=== PATIENT | male | born 1945 | race Caucasian/White ===

== ENCOUNTER → 2017-02-28 | Outpatient (CLI) | payer OTHER ==
[~2017-02-28] MED LIST: AMBIEN 10 MG TA10 MG PO; ASPIR 8181 MG PO; ASPIRIN EC325 M1 PO; ATIVAN0.5 MG PO; BACTROBAN15 GM TOP; COLACE 100 MG100 MG PO; COZAAR 25 MG TA25 MG PO; ENOXAPARIN40 MG/0.1 INJECTION; FINASTERIDE5 MG PO; HYDROCODON-ACE1 EAC4 PO; IRON256 MG PO; MEDROLDOSEPACK PO; METHADONE HCL 110 M1 PO; MOBIC15 MG PO; NEURONTIN 300300 M1 PO; PERCOCET 5-3251 EACH PO; REQUIP 0.25 M0.25 MG PO; SIMVASTATIN40 MG PO; TRAMADOL 50 MG50 MG PO; XARELTO10 MG PO
--- NOTE | 2017-03-08 08:41 | PAINCON ---
[address] [address] PAIN MANAGEMENT CONSULTATION Name: GABRIELUBALDO K [facility] [id number] Admission: 02/28/17 Attend Phys: Emelina Haywood MD Discharge: Date of : 49 Report #: [id number] THIS REPORT FOR: //name// CC: Darshan Haywood DATE OF SERVICE: 02/28/2017 FOLLOWUP COMPLAINT: Pain improved by 80%-90% after the last injection, but has started to gradually return. I would like to get another injection. FOLLOWUP HISTORY: The patient is a 71-year-old gentleman who has been seen in the pain clinic because of lumbar radiculopathy. He has undergone epidural steroid injections and gleaned benefits from these. As you recall, he has had instrumentation with rods and pedicle screws in his low back area. He has noted some worsening of his pain and discomfort. He is planning on going to [facility] in the next few days. At this juncture, because this pain has started to recur with numbness, weakness, and tingling down in the lower portion of his legs, left and right, he would like to proceed with another epidural steroid injection. He has had no complication from their use. Overall, he feels that things have been going quite well. The weather has changed and the outside temperature is 1 degree at this juncture. He has noted some increased pain and discomfort as a result of that. He continues to use oxycodone episodically. He finds that Mobic 15 mg, which is helpful and Requip helpful with the knee/leg problems. PHYSICAL EXAMINATION: VITAL SIGNS: Blood pressure 140/90, heart rate 89, respiratory rate 16, room air saturation is 96%, temperature 98.3, height 6 feet 3 inches, weight 262 pounds, BMI is 32. He has not fallen since we saw him last. HEENT: Unremarkable. NECK: Without adenopathy. HEART: Regular rate and rhythm. ABDOMEN: Nontender, somewhat protuberant. MUSCULOSKELETAL: Muscle strength in the upper extremities 5/5 with normal sensory. Musculature in the lower extremities 5/5 with some decreased sensation in the L5-S1 distribution on the left and right. The patient is walking with a slight limp MEDICATION ALLERGIES: MORPHINE. MEDICATIONS: Aspirin 81 mg daily, finasteride 5 mg for prostate daily, Mobic 15 mg oxycodone. The patient is out at this juncture, took one p.o. p.r.n. for pain, was given a total of 20 at the last visit, Requip 0.25 mg t.i.d., Zocor [address] [place] [address] PAIN MANAGEMENT CONSULTATION Name: UBALDO RIOS Room: [facility]#: [id number] Admission: 02/28/17 Attend Phys: Emelina Haywood MD Discharge: Date of : 49 Report #: [id number] IMPRESSION: 1. Low back fusion with instrumentation involving rods and pedicle screws in the L4-L5 distribution. 2. Restless leg syndrome. 3. Hypercholesterolemia. 4. Prostate history. RECOMMENDATIONS: We discussed treatment options with the patient. Risks and benefits of another epidural steroid injection were discussed. Possible complications of the procedure were again reviewed. We will consult the patient's insurance carrier. After precertification has been established patient will undergo an epidural steroid injection to help decrease the pain, discomfort, weakness, numbness and tingling, which he is experiencing in his lower extremities, which improved by 80%-90% after the previous treatment with epidural steroid injections. We would like to thank you for letting us participate in his care. We hope he continues to improve. A script for a Medrol Dosepak was written today as well as 60 tablets oxycodone and a renewal of his Mobic prescription. <ELECTRONICALLY SIGNED> By: Emelina Haywood MD 03/08/17 0841 [id number] 1849N. Danyel Haywood MD /[place]
== END ==
LOC: M.PC 00:02
DX: M54.16 Radiculopathy, lumbar region (principal); G25.81 Restless legs syndrome; M43.26 Fusion of spine, lumbar region; E78.00 Pure hypercholesterolemia, unspecified

== ENCOUNTER → 2017-03-02 | Outpatient (CLI) | payer OTHER ==
--- NOTE | 2017-03-08 08:48 | PAINCON ---
[address] [address] PAIN MANAGEMENT CONSULTATION Name: GABRIELUBALDO Okeefe [facility] [id number] Admission: 03/02/17 Attend Phys: Emelina Haywood MD Discharge: Date of : 47 Report #: [id number] THIS REPORT FOR: //name// CC: Darshan Haywood DATE OF SERVICE: 03/02/2017 FOLLOWUP COMPLAINT: Insurance company has precerted him for another epidural steroid injection. FOLLOWUP HISTORY: The patient is a 71-year-old gentleman who has been seen in the pain clinic because of lumbar radiculopathy. He gleaned greater than 90% improvement after epidural steroid injections. He has noted over the past few weeks, some worsening of his pain and discomfort. It has been radiating down into his low back and the posterior portion of his legs. He is planning on going to [facility] with his family. As you recall, he has had surgery on his back with pedicle screws and rodding. He went with his to the shopping center yesterday. States that he was only able to walk for a short brief period of time before onset of pain and discomfort caused him to stop. He then set and waited for his to return. He notes a stabbing sensation down his buttocks with radiation down into his leg involving his feet. He rates his pain as a 5/10 today. He has had no problem with his bowel or bladder function. He finds that the oxycodone can be helpful. He uses this medication episodically. PHYSICAL EXAMINATION: Blood pressure 147/90, heart rate 96, respiratory rate 16, room air saturation 95%, temperature 98.3, height 6 feet 3 inches, weight 261 pounds, BMI is 33. HEENT: Unremarkable. NECK: No adenopathy. HEART: Regular rate. ABDOMEN: Nontender, somewhat protuberant. MUSCULOSKELETAL: The patient notes normal strength 5/5 in the upper musculature, but notes some pain and discomfort in the lower portion of his back. He rates pain as 5/5. Has some L5-S1 straight leg positivity in the left leg today. He is walking with a limp. He walks when a somewhat forward leaning position. ALLERGIES: MORPHINE. MEDICATIONS: The patient continues with aspirin 81 mg daily, finasteride 5 mg for prostate, Mobic 15 mg, oxycodone 5 mg p.r.n., Requip 0.25 mg t.i.d., restless leg, Zocor 40 mg daily. IMPRESSION: [facility] [address] [place] [address] PAIN MANAGEMENT CONSULTATION Name: GABRIELUBALDO K Room: [facility]#: [id number] Admission: 03/02/17 Attend Phys: Emelina Haywood MD Discharge: Date of : 47 Report #: [id number] 1. Low back pain with fusion involving rods and pedicle screws at the L4-L5 distribution. 2. Restless legs syndrome. 3. Hypercholesterolemia. 4. Prostate History. RECOMMENDATIONS: We discussed treatment options with the patient. He has returned today for an injection. Again, the possible complication of the procedure, which could include but are not limited to infection, increased muscle soreness, headache, bleeding, nerve damage. The patient elects to proceed. PROCEDURE NOTE: The patient was placed in the prone position. Fluoroscopy was used to identify the appropriate L5-S1 area. Anterior and posterior imaging was used. After appropriate placement and infiltration of 0.25% bupivacaine. A total of 80 mg Depo-Medrol, 40 mg triamcinolone and 2 mL of 0.25% bupivacaine was injected. The patient tolerated the procedure well. There were no complications. There was no bleeding. A Band-Aid was then placed over the site. He was taken to the recovery room where he remained for an appropriate amount of time. He will take a Medrol Dosepak, which has been given to him. While he is on vacation if he notes his pain should worsen, he will then take that medication. He will call us if he has any problems. We would like to thank you for letting us participate in his care. We hope he continues to improve. He will continue with [facility] as well. <ELECTRONICALLY SIGNED> By: Emelina Haywood MD 03/08/17 0848 [id number] 1718N. Danyel Haywood MD /[place]
== END | disposition home or self-care (01) ==
LOC: M.PC 02:18
DX: M54.16 Radiculopathy, lumbar region (principal); G25.81 Restless legs syndrome; E78.00 Pure hypercholesterolemia, unspecified; Z88.6 Allergy status to analgesic agent; Z79.82 Long term (current) use of aspirin; Z85.46 Personal history of malignant neoplasm of prostate; Z98.890 Other specified postprocedural states

== ENCOUNTER → 2017-05-04 | Outpatient (CLI) | payer OTHER ==
--- NOTE | 2017-05-17 14:40 | PAINCON ---
[address] [address] PAIN MANAGEMENT CONSULTATION Name: GABRIELUBALDO Okeefe Room: [facility] Zara#: [id number] Admission: 05/04/17 Attend Phys: Emelina Haywood MD Discharge: Date of : 47 Report #: [id number] THIS REPORT FOR: //name// CC: Darshan Haywood DATE OF SERVICE: 05/04/2017 FOLLOWUP COMPLAINT: Return of back and leg pain. FOLLOWUP HISTORY: The patient is a 71-year-old gentleman who has been followed in the pain clinic. He has had back surgery with rods and pedicle screws placed. He has undergone epidural steroid injections and gleaned greater than 50% improvement after the injections. He has noted some recurrence of his pain. He experienced greater than 80% improvement after the last injection. He is making an appointment at to see a neurosurgeon. At this juncture, he feels that his pain is beginning to return and he would like to undergo another injection before it becomes quite problematic. He also has a number of family obligations which he needs to attend in the next few weeks to months. He feels that this would enable him to fulfill those obligations with less pain and discomfort. He feels that Meloxicam still is helpful and that oxycodone 5 mg tablets continue to be efficacious. He rates his pain as a 7/10 at this juncture. He does take Xarelto and would like to stop this medication at an appropriate time to undergo his injection. ALLERGIES: MORPHINE. MEDICATIONS: Reviewed are aspirin 81 mg daily, finasteride 5 mg for prostate, meloxicam 15 mg daily, oxycodone 5/325 one mg p.o. q. 6 hours p.r.n., Requip 0.25 mg t.i.d., Zocor 40 mg daily, Xarelto, losartan. PAIN CILNIC ASSESSMENT: 1. History of osteoarthritis. The patient has had his right knee replaced and left knee replaced as well as a left hip replacement and fusion of the L4-L5 portion of his low back. 2. Pain intensity 6-7, when walking. 3. Fall risk, the patient has not fallen in the last 3 months. 4. The patient is on a blood thinner, Xarelto. 5. History of hypertension. The patient is on antihypertensive medication. 6. Opioid therapy. The patient is using oxycodone 5/325 and gets them only from the pain clinic. 7. Risk assessment. 8. Functional assessment tool score is 36/70 in regards to general activity, mood, walking, normal work, relationship with others, sleep, and [place] [address] PAIN MANAGEMENT CONSULTATION Name: UBALDO RIOS Room: [facility]#: [id number] Admission: 05/04/17 Attend Phys: Emelina Haywood MD Discharge: Date of : 49 Report #: [id number] 9. Recreational drugs. The patient denies use of recreational drugs. 10. Tobacco: The patient denies tobacco use. 11. Alcoholic beverages: The patient drinks about 2-4 alcoholic beverages per week. PHYSICAL EXAMINATION: GENERAL: The patient is a well-developed white male who appears his stated age. Appears oriented and alert x 3. Affect is appropriate. VITAL SIGNS: Height 6 feet 3 inches, weight 265 pounds, BMI is 33. Blood pressure 157/99, heart rate 95, respiratory rate 16, room air saturation 95%, temperature 98.3. HEENT: Normocephalic, atraumatic with extraocular eye muscles intact. Hearing within normal limits. Buccal membranes moist. NECK: Without adenopathy or bruits. LUNGS: Clear to auscultation. HEART: Regular rate. ABDOMEN: Nontender, somewhat protuberant. MUSCULOSKELETAL: Strength is noted to be 5/5 in the upper extremities. He has some pain in his lower back. Rates his muscle strength in the lower extremities as above 5/5. He has some positive sensation in the straight leg raises on the left. He does walk with an antalgic gait with a slight limp. It is somewhat forward leaning in his ambulation. IMPRESSION: 1. History of low back fusion with pedicle screws and rods in the L4-L5 distribution since January 2009. 2. Restless leg syndrome. 3. Hypercholesterolemia. 4. Prostate history. RECOMMENDATIONS: We discussed treatment options with the patient. At this juncture, he would feel that another epidural steroid injection would be beneficial. He has had them before. Notes that the pain improves significantly to 80%. He is considering going on vacation with family members. At this juncture, he feels that this pain is beginning to increase. He feels that another epidural steroid injection would be beneficial. He has had no complication from the procedures in the past. He is contemplating an appointment with a neurosurgeon at [facility]. He feels at this juncture, another epidural steroid injection would be beneficial and would like to have it performed. He has returned for evaluation and we will notify his insurance company. After precertification has been provided, we will then proceed with an epidural steroid injection in the L5-S1 distribution, which has been most effective and helpful in the past. [place] [address] PAIN MANAGEMENT CONSULTATION Name: UBALDO RIOS Room: [facility] CHELLE Zuñiga#: [id number] Admission: 05/04/17 Attend Phys: Emelina Haywood MD Discharge: Date of : 49 Report #: [id number] Report amended for demographic error. <ELECTRONICALLY SIGNED> By: Emelina Haywood MD 05/17/17 1440 1555 1838N. Danyel Haywood MD /[place]
== END ==
LOC: M.PC 01:35
DX: E78.00 Pure hypercholesterolemia, unspecified (principal); M19.90 Unspecified osteoarthritis, unspecified site; I10 Essential (primary) hypertension; Z79.891 Long term (current) use of opiate analgesic

== ENCOUNTER → 2017-05-11 | Outpatient (CLI) | payer OTHER ==
--- NOTE | 2017-05-17 14:40 | PAINCON ---
[facility] [address] [place] [address] PAIN MANAGEMENT CONSULTATION Name: UBALDO RIOS [facility] [id number] Admission: 05/11/17 Attend Phys: Emelina Haywood MD Discharge: Date of : 47 Report #: [id number] THIS REPORT FOR: //name// CC: Darshan Haywood DATE OF SERVICE: 05/11/2017 FOLLOWUP COMPLAINT: "Pain has restarted radiating down into my legs." FOLLOWUP HISTORY: The patient is a 71-year-old gentleman who has been seen in the pain clinic because of chronic back pain. As you recall, he has had back surgery in the past. He is noticing a worsening of his pain and discomfort over the last few months. At this juncture, he rates his pain as 5/10. He was having pain quite severe. He has scheduled an appointment with a neurosurgeon at [facility]. He is contemplating going to [facility] and a number of places with his family in the near future. He would like to undergo an epidural steroid injection given that they have been quite helpful in the past. He has not taken Xarelto. He has returned to the pain clinic with the thoughts of undergoing an epidural steroid injection. At the last visit, gabapentin 300 mg p.o. t.i.d. was started. He noticed that that medication has been helpful. He is having less of the shooting types of pain. He was able to do some work in his yard as a result of the new medication. He still is having pain and discomfort and would like to proceed with an injection. He finds that the meloxicam 15 mg p.o. every day is helpful. It is not having any problems with his GI tract. He feels that the oxycodone 5/325, which he takes 1-2 tablets at bedtime is beneficial. Overall, he rates his pain as 5/10 today. ALLERGIES: MORPHINE. MEDICATIONS: Review of his current medications include aspirin 81 mg 1 p.o. daily, finasteride 5 mg for prostate, meloxicam 15 mg p.o. daily, oxycodone 5/325 one p.o. q. 6 hours p.r.n. pain, Requip 0.25 mg t.i.d., Zocor 40 mg daily, Xarelto daily, losartan, and gabapentin 300 mg 1 p.o. t.i.d. PAIN CLINIC ASSESSMENT: 1. History of osteoarthritis: The patient has had his right knee replaced and left knee replaced as well as a left hip replacement and fusion of the L4-L5 portion of his lower back. 2. Pain intensity: The patient rates his pain as a 5/10. 3. Fall risk: The patient has not fallen in the last 3 months. 4. The patient is on a blood thinner, Xarelto. He has not taken it in preparation for an epidural steroid injection today. 5. History of hypertension: The patient is hypertensive and [place] [id number] PAIN MANAGEMENT CONSULTATION Name: UBALDO RIOS [facility] [id number] Admission: 05/11/17 Attend Phys: Emelina Haywood MD Discharge: Date of : 47 Report #: [id number] 6. Opioid therapy: The patient is using oxycodone 5/325 one p.o. q. 6 hours p.r.n. pain. 7. Risk management. 8. Functional assessment tool score is 36/70 in regards to general activity, mood, walking, work, relationships with others, sleep, and enjoyment of life. 9. Recreational drugs: The patient denies use of recreational drugs. 10. Tobacco: The patient denies use of tobacco. 11. Alcoholic beverages: The patient drinks about 2-4 alcoholic beverages per week. PHYSICAL EXAMINATION: GENERAL: The patient is a well-developed white male who appears his stated age. He is alert and oriented x 3. His affect is appropriate. VITAL SIGNS: Height 6 feet 3 inches, weight 265 pounds, BMI is 33. Blood pressure 130/79, heart rate 92, respiratory rate 16, room air saturation 96%, and temperature 97.8. HEENT: Normocephalic, atraumatic with extraocular eye muscles intact. Hearing within normal limits. Buccal membranes moist. NECK: Without adenopathy or bruits. LUNGS: Clear to auscultation. HEART: Regular rate. ABDOMEN: Nontender, somewhat protuberant. MUSCULOSKELETAL: Strength is noted today in the lower extremities and the upper extremities to be 5/5. Has some pain in his low back with pain radiating down to the legs. Rates his muscle strength in the lower extremities at 5/5. The patient does walk with a slightly antalgic gait with some slight forward leaning. He has a positive straight leg raise on the left. He has a slight limp while walking. ASSESSMENT: 1. History of low back fusion with pedicle screws and rods in the L4-L5 distribution since January 2009. 2. Restless leg syndrome. 3. Hypercholesterolemia. 4. Prostate history. RECOMMENDATIONS: We discussed treatment options with the patient. The risks and benefits of an epidural steroid injection were again reviewed. Possible complication of the procedure were discussed. They could include an improvement, no improvement, nerve damage, infection, worsening of pain and the patient elects to proceed. The patient is having pain and discomfort in the L5-S1 distribution. We will proceed with a midline injection at this level. PROCEDURE NOTE: The patient was assisted in getting on the table. His back was sterilely prepped while he was in the prone position. Fluoroscopy was used to identify the target zone using the anterior-posterior [place] [id number] PAIN MANAGEMENT CONSULTATION Name: UBALDO RIOS Room: [facility]#: [id number] Admission: 05/11/17 Attend Phys: Emelina Haywood MD Discharge: Date of : 49 Report #: [id number] lateral. This area had been sterilely prepped with Betadine and infiltrated with 0.25% bupivacaine. Total of 80 mg Depo-Medrol, 40 mg triamcinolone, and 2 mL of 0.25% bupivacaine was injected. The patient tolerated the procedure well. There was no bleeding. A Band-Aid was then placed. The patient was then escorted to the Recovery Room where he remained in the pain clinic for an appropriate amount of time. He will call us if he has any problems or concerns. We would like to thank you for letting us participate in his care. We hope he continues to improve. <ELECTRONICALLY SIGNED> By: Emelina Haywood MD 05/17/17 1440 2201 0436N. Danyel Haywood MD /[place]
== END | disposition home or self-care (01) ==
LOC: M.PC 01:36
DX: M54.16 Radiculopathy, lumbar region (principal); G89.29 Other chronic pain; I10 Essential (primary) hypertension; E78.00 Pure hypercholesterolemia, unspecified; G25.81 Restless legs syndrome; Z79.01 Long term (current) use of anticoagulants; Z98.890 Other specified postprocedural states; Z79.899 Other long term (current) drug therapy; Z96.653 Presence of artificial knee joint, bilateral; Z96.642 Presence of left artificial hip joint; Z79.891 Long term (current) use of opiate analgesic; Z88.8 Allergy status to other drugs, medicaments and biological substances

== ENCOUNTER → 2017-07-04 | Outpatient (CLI) | payer OTHER ==
--- NOTE | 2017-07-11 10:23 | PAINCON ---
[address] [address] PAIN MANAGEMENT CONSULTATION Name: GABRIELUBALDO Okeefe [id number] Admission: 07/04/17 Attend Phys: Emelina Haywood MD Discharge: Date of : 49 Report #: [id number] THIS REPORT FOR: //name// CC: Darshan Haywood DATE OF SERVICE: 07/04/2017 FOLLOWUP COMPLAINT: Pain was 70% improved after last injection and I would like to proceed with another injection. FOLLOWUP HISTORY: The patient is a 72-year-old gentleman who has been seen in the pain clinic because of lumbar radiculopathy. He was seen in April. He underwent an epidural steroid injection. Noted an improvement in his pain of 70%. He has had pain, which is radiating down the posterior portion of his left leg in the back and down into his calf. As you recall, he has had surgery in the past. He does have rods and pedicle screws in place. He is scheduled on 07/31/2017 to undergo some low back surgery. Notes that he is having problem in the L3 and L4 areas. He continues to stay active. He states that he is cleaning up his backyard in preparation for his daughter's graduation in a few days. He does take Xarelto. He stopped taking it a couple of days ago. He would like to undergo another epidural steroid injection. He finds that the gabapentin is helpful. Periodic use of oxycodone 5/325 mg tablets can be helpful. He also continues to use meloxicam. He is not having any GI complaints at this juncture. He did not have any problems with bowel or bladder function with his current medical regimen. He rates his pain as a 5-6/10. ALLERGIES: MORPHINE. CURRENT MEDICATIONS: Aspirin 81 mg daily, finasteride 5 mg for prostate, meloxicam 15 mg daily, oxycodone 5/325 one p.o. q. 6 hours p.r.n. pain, Requip 0.25 mg t.i.d., Zocor 40 mg, Xarelto, losartan, and gabapentin 300 mg t.i.d. PAIN CLINIC ASSESSMENT: 1. History of osteoarthritis. The patient has right knee replacement as well as left knee replacement. He has had fusion in the L4-L5 area with rods and pedicle screws. 2. Pain intensity 5-6/10. 3. Fall risk. The patient has fallen, but tripped over some tree limbs when he was trimming. 4. Blood thinner. The patient is on Xarelto. 5. History of hypertension. The patient is hypertensive and is on an antihypertensive regimen. 6. Opioid therapy. The patient uses oxycodone 5/325 pills. He states that a few pills last [place] [address] PAIN MANAGEMENT CONSULTATION Name: UBALDO RIOS [facility] [id number] Admission: 07/04/17 Attend Phys: Emelina Haywood MD Discharge: Date of : 49 Report #: [id number] 7. Risks management. 8. Functional assessment tool. 9. Recreational drugs: The patient denies use of recreational drugs. 10. Tobacco: The patient denies use of tobacco. 11. Alcoholic beverages. The patient drinks occasional beer. PHYSICAL EXAMINATION: GENERAL: The patient is a well-developed white male. He appears his stated age. He is alert and oriented x 3. His affect is appropriate. His speech is fluent. VITAL SIGNS: Blood pressure 136/75, heart rate 83, respiratory rate 16, room air saturation 97%. Height 6 feet 3 inches, weight 256 pounds, BMI is 31. HEENT: Normocephalic, atraumatic. Extraocular eye muscles intact. Sclerae nonicteric. Hearing is within normal limits. Mucous membranes are moist. NECK: Without adenopathy or bruits. Good range of motion. LUNGS: Clear to auscultation without rhonchi or rales. HEART: Regular rate. ABDOMEN: Nontender, somewhat protuberant MUSCULATURE: Strength is noted to be 5/5 for the major muscle groups in the upper extremity, muscle strength 5/5 for the major muscle groups in lower extremity. The patient has pain and discomfort which is radiating down into the low back area on the right, low back area and involving the left leg. The patient walks with a slightly antalgic gait. He has a slight forward lean walking. Positive straight leg raise on the left. ASSESSMENT: 1. History of low back fusion with pedicle screws and rods in the L4-L5 distribution 2. Restless leg syndrome. 3. Hypercholesterolemia. 4. Prostate history. RECOMMENDATIONS: We discussed treatment options with the patient. Risks and benefits of another epidural steroid injection were discussed. The patient gleaned greater than 75% improvement after the last injection. He continues to be quite active. He has noted some worsening of his pain and has returned to the pain clinic with a desire to undergo an epidural steroid injection. He is still taking the Xarelto. We will have him stop his Xarelto. He will return in a couple of days to the pain clinic after which he will undergo an epidural steroid injection. Risks and benefits of the procedure were again reviewed. Possible complications were discussed. The patient would like to proceed with an injection and would like to have his medications renewed. A script for gabapentin 300 mg 1 p.o. t.i.d. has been dispensed and oxycodone 5/325 one p.o. b.i.d. have been written as well. We would like to thank you for letting us participate in his care[place] [address] PAIN MANAGEMENT CONSULTATION Name: UBALDO RIOS [facility]: [facility]#: [id number] Admission: 07/04/17 Attend Phys: Emelina Haywood MD Discharge: Date of : 49 Report #: [id number] continues to improve. He will return for an epidural steroid injection within a short period of time. <ELECTRONICALLY SIGNED> By: Emelina Haywood MD 07/11/17 1023 1225 [id number] Haywood MD /nt
== END ==
LOC: M.PC 03:57
DX: M54.16 Radiculopathy, lumbar region (principal); G25.81 Restless legs syndrome; E78.00 Pure hypercholesterolemia, unspecified; N40.0 Benign prostatic hyperplasia without lower urinary tract symptoms; Z88.5 Allergy status to narcotic agent

== ENCOUNTER → 2017-07-06 | Outpatient (CLI) | payer OTHER ==
--- NOTE | 2017-07-11 10:23 | PAINCON ---
[address] [address] PAIN MANAGEMENT CONSULTATION Name: GABRIELUBALDO Okeefe [facility]limp[facility] [id number] Admission: 07/06/17 Attend Phys: Emelina Haywood MD Discharge: Date of : 49 Report #: [id number] THIS REPORT FOR: //name// CC: Emelina Garcia MD DATE OF SERVICE: 07/06/2017 CHIEF COMPLAINT: Here for an epidural injection. They have been helpful in the past. FOLLOWUP HISTORY: The patient is a 72-year-old gentleman, who has been seen and followed in the pain clinic because of chronic pain involving his low back. As you recall, he has undergone surgery in the lower back area with fusion. He has placement of rods as well as pedicle screws in place. He noticed greater than 70% improvement after epidural steroid injections in the past. He is now preparing for his granddaughter's graduation. He has been working pretty hard in his backyard. He has been moving bushes. At this juncture, he has noted some worsening of pain and discomfort with pain radiating down into his legs bilaterally. He continues to stay active. Yesterday he played golf. He has not taken his Xarelto for a number of days. He rates his pain as "pretty good today." He still feels that an epidural steroid injection is warranted because he does still have some back pain and discomfort. ALLERGIES: MORPHINE. CURRENT MEDICATIONS: Aspirin 81 mg daily, finasteride 5 mg for prostate, Meloxicam 15 mg daily, oxycodone 5/325 one p.o. q. 6 hours p.r.n. pain, Requip 0.25 mg t.i.d., Zocor 40 mg, Xarelto, losartan, gabapentin 300 mg t.i.d. PAIN CLINIC ASSESSMENT: 1. History of osteoarthritis. The patient has had replacement of his right knee as well as left knee replacement. His fusion of his back at L4-L5 area with rods and pedicle screws. 2. Pain intensity was 5-10 at the previous visit. 3. Fall risk. The patient has not fallen. The patient has tripped over some tree limbs, which he was trimming. 4. Blood thinner. The patient is off his Xarelto for the epidural steroid injection. 5. History of hypertension. The patient is on an antihypertensive regimen. 6. Opioid therapy. The patient is using oxycodone 5/325 p.r.n. for pain assistance. 7. Risk assessment tool. 8. Functional assessment tool. 9. Recreational drug use. The patient denies [place] [address] PAIN MANAGEMENT CONSULTATION Name: UBALDO RIOS Room: [facility]#: [id number] Admission: 07/06/17 Attend Phys: Emelina Haywood MD Discharge: Date of : 49 Report #: [id number] 10. Tobacco: The patient denies use of tobacco. 11. Alcoholic beverages. The patient drinks an occasional beer. Does not drink on a regular basis. PHYSICAL EXAMINATION: GENERAL: The patient is a well-developed male. He appears his stated age. He is alert and oriented x 3. His affect is appropriate. Speech is fluent. VITAL SIGNS: As listed above. HEENT: Normocephalic, atraumatic. Extraocular eye muscles intact. Sclerae nonicteric. The patient wears glasses. Hearing is within normal limits. Mucous membranes are moist. NECK: Without adenopathy or bruits. Good range of motion. LUNGS: Clear to auscultation without rhonchi or rales. HEART: Regular rate. S1, S2. ABDOMEN: Nontender, somewhat protuberant. MUSCULOSKELETAL: Muscle strength is judged to be 5/5 for the major muscle groups in the upper extremity with symmetry and without neurologic deficit. The patient has pain and discomfort in the lower portion of his back with pain radiating down into the L5-S1 distribution on his legs bilaterally. The patient has a well-healed scar in the midline area in the lumbar L4-L5 areas, status post instrumentation. ASSESSMENT: 1. History of low back pain with pedicle screws and rods at the L4-L5 area. 2. Restless leg syndrome. 3. Hypercholesterolemia. 4. Prostate history. RECOMMENDATIONS: We discussed treatment options with the patient. He has held his Xarelto. He has returned to the pain clinic for a lumbar epidural steroid injection. He has gleaned 70-80% improvement in the past. He is about to host his granddaughter's graduation. He has been cleaning his backyard in preparation for this. He has moved some foliage. He has noted some worsening of his pain and discomfort. He would like to proceed with another epidural steroid injection. Pain radiates down in to the L5-S1 distribution when present. PROCEDURE NOTE: We discussed treatment options with the patient. Risks and benefits of an epidural steroid injection were again reviewed. They include infection, increased muscle soreness, headache, bleeding, worsening of pain, nerve damage and the patient elects to proceed. PROCEDURE NOTE: The patient was placed in the prone position. Fluoroscopy was used to identify the L5-S1 interspace. Fluoroscopy using an anterior, posterior as well as a lateral approach was used to guide our needle placement. After the midline L5-S1 area was identified. Betadine had [place] [address] PAIN MANAGEMENT CONSULTATION Name: UBALDO RIOS Room: [facility]#: [id number] Admission: 07/06/17 Attend Phys: Emelina Haywood MD Discharge: Date of : 49 Report #: [id number] This area was then infiltrated with 0.25% bupivacaine. A 17-gauge Tuohy with loss of resistance technique was used to gain access to the epidural space. There was no CSF, heme or paresthesia. A total of 80 mg Depo-Medrol, 40 mg triamcinolone and 2 mL of 0.25% bupivacaine was injected. The patient tolerated the procedure well. There were no complications. He will follow up in the future as needed. The patient states that he is going to go to ____ and have some additional surgery in the near future. <ELECTRONICALLY SIGNED> By: Emelina Haywood MD 07/11/17 1023 1417 1951N. Danyel Haywood MD /nt
== END | disposition home or self-care (01) ==
LOC: M.PC 01:38
DX: M54.16 Radiculopathy, lumbar region (principal); G89.29 Other chronic pain; I10 Essential (primary) hypertension; E78.00 Pure hypercholesterolemia, unspecified; G25.81 Restless legs syndrome; Z87.438 Personal history of other diseases of male genital organs; Z79.891 Long term (current) use of opiate analgesic; Z79.899 Other long term (current) drug therapy; Z96.653 Presence of artificial knee joint, bilateral; Z88.8 Allergy status to other drugs, medicaments and biological substances; Z79.82 Long term (current) use of aspirin; Z98.890 Other specified postprocedural states

== ENCOUNTER 2017-07-11 10:17 | Emergency (ER) | payer OTHER ==
[~2017-07-11] VITALS: Ht 190.5 cm; Wt 115.7 kg
[~2017-07-11 10:17] MED LIST changes: -BACTROBAN15 GM TOP; -COZAAR 25 MG TA25 MG PO; -SIMVASTATIN40 MG PO
[2017-07-11 11:50] VITALS: BP 125/96
== END 2017-07-11 13:39 | disposition home or self-care (01) ==
LOC: M.ERS 10:17
DX: M54.5 Low back pain (principal); Z88.6 Allergy status to analgesic agent

== ENCOUNTER 2017-07-25 16:47 | Emergency (ER) | payer OTHER ==
[~2017-07-25] VITALS: Ht 190.5 cm; Wt 116.1 kg
[2017-07-25 17:46] LABS: HEMATOCRIT 44.9 % (42.0-52.0); HEMOGLOBIN 14.5 gm/dL (14.0-18.0); MCH 28.3 pg (26.0-34.0); MCHC 32.4 g/dL (28.0-37.0); MCV 87.5 fL (80.0-100.0); MPV 7.7 fl. (7.2-11.1); NUCLEATED RBCS 0 /100WBC; PLATELET COUNT* 368 thou/uL (150-400); RBC 5.13 mil/uL (4.50-6.00); RDW-CV 15.1 % (10.5-14.5); WBC 14.3 thou/uL (4.0-11.0)
[2017-07-25 17:52] LABS: APTT 44.1 Seconds (25.0-31.3); CALCIUM 9.2 mg/dL (8.5-10.1); CREATININE 1.4 mg/dL (0.6-1.3); INR 1.3; POTASSIUM 5.2 mmol/L (3.5-5.1); PROTIME 12.2 Seconds (9.20-11.50)
[2017-07-25 17:57] LABS: ALBUMIN 2.4 g/dL (3.4-5.0); TOTAL BILIRUBIN 0.4 mg/dL (<0.1-1.0); TOTAL PROTEIN 7.6 g/dL (6.4-8.2)
[2017-07-25 18:23] LABS: ABSOLUTE LYMPHOCYTES 0.3 thou/uL (0.8-5.3); ABSOLUTE MONOCYTES 0.3 thou/uL (0.0-1.2); ABSOLUTE NEUTROPHILS 13.7 thou/uL (1.6-8.1)
[2017-07-25 18:24] LABS: LARGE PLATELETS OCCASIONAL; PLATELET ESTIMATE ADEQUATE
[2017-07-25 19:37] LABS: URINE BILIRUBIN NEGATIVE (Negative); URINE BLOOD NEGATIVE (Negative); URINE CLARITY CLEAR; URINE COLOR YELLOW; URINE GLUCOSE-RANDOM NEGATIVE (Negative); URINE KETONES NEGATIVE (Negative); URINE LEUKOCYTES-REFLEX NEGATIVE (Negative); URINE NITRITE-REFLEX NEGATIVE (Negative); URINE PROTEIN NEGATIVE (Negative); URINE SPECIFIC GRAVITY 1.025 (1.005-1.030)
[2017-07-25 21:25] VITALS: BP 129/72
== END 2017-07-25 21:27 | disposition short-term general hospital (02) ==
LOC: M.ERS 16:47
PROVIDERS: Nurse Practitioner Family
DX: G89.29 Other chronic pain (principal); M54.5 Low back pain; L03.116 Cellulitis of left lower limb; I77.6 Arteritis, unspecified; N40.0 Benign prostatic hyperplasia without lower urinary tract symptoms; M19.90 Unspecified osteoarthritis, unspecified site; I10 Essential (primary) hypertension; E78.5 Hyperlipidemia, unspecified; Z88.5 Allergy status to narcotic agent

== ENCOUNTER 2017-11-08 16:40 | Emergency (ER) | payer OTHER ==
[~2017-11-08] VITALS: Ht 193 cm; Wt 104.3 kg
[2017-11-08] MEDS ORDERED: SIMVASTATIN40 MG PO (17:02)
[2017-11-08] MEDS ORDERED: COZAAR 25 MG TA25 MG PO (17:02)
[2017-11-08] MEDS ORDERED: BACTROBAN15 GM TOP (17:43)
[2017-11-08 17:57] VITALS: BP 167/92
== END 2017-11-08 17:57 | disposition home or self-care (01) ==
LOC: M.ERS 16:40
DX: S60.551A Superficial foreign body of right hand, initial encounter (principal); I48.91 Unspecified atrial fibrillation; M19.90 Unspecified osteoarthritis, unspecified site; E78.5 Hyperlipidemia, unspecified; Z88.6 Allergy status to analgesic agent; X58.XXXA Exposure to other specified factors, initial encounter; Y93.9 Activity, unspecified; Y92.89 Other specified places as the place of occurrence of the external cause; Y99.8 Other external cause status